=== PATIENT | male | born 1960 | race Caucasian/White ===

== ENCOUNTER 2018-02-04 12:24 | Emergency (ER) | payer OTHER ==
[2018-02-04] MEDS ORDERED: ASPIRIN 81 MG CHEWABLE TAB ONE (12:34)
--- NOTE | 2018-02-04 12:34 | CPEKG ---
Heart Rate: 71 RR Interval: 845 P-R Interval: 148 QRSD Interval: 106 QT Interval: 404 QTC Interval: 439 P Spencer: 44 QRS Spencer: -26 T Wave Spencer: 20 EKG Severity - BORDERLINE ECG - EKG Impression: SINUS RHYTHM EKG Impression: BORDERLINE T WAVE ABNORMALITIES Electronically Signed By: Jack Cantu 09-Feb-2018 08:13:01
[2018-02-04] MEDS ORDERED: ASPIRIN 81 MG CHEWABLE TAB PO ONE (12:36)
[2018-02-04 12:47] LABS: PLATELET COUNT 302 10^3/uL (150-400)
--- NOTE | 2018-02-04 12:47 | EDPHY ---
H & P Time Seen by Provider: 02/04/18 12:32 - Medical/Surgical History Hx Asthma: No Hx Chronic Respiratory Disease: No Hx Diabetes: No Hx Cardiac Disease: No Hx Renal Disease: No Hx Cirrhosis: No Hx Alcoholism: No Hx HIV/AIDS: No Hx Splenectomy or Spleen Trauma: No Other PMH: high cholesterol, enlarged prostate - Social History Smoking Status: Never smoked Constitutional: Initial Vital Signs Temperature (C) 36.8 C 02/04/18 12:39 Heart Rate 68 02/04/18 12:39 Respiratory Rate 20 02/04/18 12:39 Blood Pressure 155/93 H 02/04/18 12:39 O2 Sat (%) 94 02/04/18 12:39 O2 Delivery Mode Room Air Allergies/Adverse Reactions: No Known Allergies Allergy (Verified 02/04/18 12:38) Home Medications: Medication Instructions Recorded Simvastatin [Zocor 5 mg] 5 mg PO DAILY18 01/24/12 Flomax 0.4 MG (RX) 04/21/15 Claritin 02/04/18 Pepcid 02/04/18 Medical Decision Making ED Course/Re-evaluation: CHIEF COMPLAINT: Intermittent palpitations and shortness of breath and near passing out HISTORY OF PRESENT ILLNESS: Healthy 57-year-old who over the last 3-4 days has had multiple episodes of irregular and rapid heart rate. When his heart rate becomes irregular and rapid he feels short of breath and lightheaded and dizzy and almost as if he is going to pass out. All of the episodes have and it spontaneously after a fairly brief period of time. He had a couple of episodes a few days ago and the day before yesterday and then multiple episodes yesterday and 1 this morning. It does not seem to be waking him from sleep. He has no prior history of this. He denies any medication use or illness. REVIEW OF SYSTEMS: A 10 point review of systems was performed and is negative with the exception of the elements mentioned in the history of present illness. PHYSICAL EXAM: HR, BP, O2 Sat, RR. Temp noted General Appearance: Alert, well hydrated, appropriate, and non-toxic appearing. Head: Atraumatic without scalp tenderness or obvious injury Eyes: Pupils equal, round, reactive to light and accommodation, EOMI, no trauma , no injection. Ears: Clear bilaterally, no perforation, normal landmarks Nose: Atraumatic, no rhinorrhea, clear. Throat: There is no erythema or exudates, no lesions, normal tonsils, mucus membranes moist. Neck: Supple, 2+ carotid upstroke, nontender, no lymphadenopathy. Respiratory: No retractions, no distress, no wheezes, and no accessory muscle use. Lungs are clear to auscultation bilaterally. Cardiovascular: Regular rate and rhythm, no murmurs, rubs, or gallops. Bilateral carotid, radial, dorsalis pedis, and posterior tibial pulses intact. Good capillary refill all extremities. Gastrointestinal: Abdomen is soft, nontender, non-distended, no masses, no rebound, no guarding, no peritoneal signs. Musculoskeletal: Normal active ROM of all extremities, atraumatic. Neurological: Alert, appropriate, and interactive. The patient has normal DTRs and non-focal cranial nerves, motor, sensory, and cerebellar exam. Skin: No rashes, good turgor, no nodules on palpation. Past medical history: Benign prostatic hypertrophy, hypercholesterolemia Past surgical history: Noncontributory Family history: Father and uncle with mitral valve problems later in life both requiring repair Social history: , employed, does not abuse tobacco drugs or alcohol DIAGNOSTICS/PROCEDURES/CRITICAL CARE TIME: The 12 lead EKG was interpreted by myself. See hard copy and/or "tracemaster" electronic copy for interpretation. Sinus mechanism no ischemia and normal intervals DIFFERENTIAL DIAGNOSIS: The differential diagnosis for the patient's palpitations included but was not limited to various causes of sinus tachycardia such as dehydration and medicines, SVT, atrial flutter, atrial fibrillation, pulmonary causes. MEDICAL DECISION MAKING: This patient seems like he is having paroxysmal episodes of a rapid rhythm. He feels his heart rate increase in become significantly irregular. A soon as that occurs he become shortness of breath and near syncopal. Symptoms resolved spontaneously and a few minutes but yesterday the happened multiple times. He had another episode this morning and decided to come here. He is asymptomatic now. He denies any recent illnesses, he denies any history of this sort of palpitation prior to 3 or 4 days ago. Denies any family history of rhythm disturbance. Denies any use of prescribed, [id number] medicines. EKG is unremarkable for any rhythm disturbance. Although this patient's laboratory studies are unremarkable. I just spoke with Dr. Reece Negro from Cardiology. This patient will walk up stairs now and he will have a Holter monitor placed. He will then follow up with Dr. Negro after the monitors interrogated for additional workup or studies. He has been told to return here if symptoms worsen. - Data Points Laboratory Results: Laboratory Results 02/04/18 12:38 02/04/18 12:38 02/04/18 02/04/18 12:38 12:38 WBC 7.53 10^3/uL 10^3/uL (3.80-9.50) RBC 5.33 10^6/uL 10^6/uL (4.40-6.38) Hgb 16.6 g/dL g/dL (13.7-17.5) Hct 47.4 % % (40.0-51.0) MCV 88.9 fL fL (81.5-99.8) MCH 31.1 pg pg (27.9-34.1) MCHC 35.0 g/dL g/dL (32.4-36.7) RDW 12.4 % % (11.5-15.2) Plt Count 302 10^3/uL 10^3/uL (150-400) MPV 9.3 fL fL (8.7-11.7) Neut % (Auto) 66.3 % % (39.3-74.2) Lymph % (Auto) 22.8 % % (15.0-45.0) [place] % (Auto) 7.6 % % (4.5-13.0) Eos % (Auto) 2.3 % % (0.6-7.6) Baso % (Auto) 0.9 % % (0.3-1.7) Nucleat RBC Rel Count 0.0 % % (0.0-0.2) Absolute Neuts (auto) 4.99 10^3/uL 10^3/uL (1.70-6.50) Absolute Lymphs (auto) 1.72 10^3/uL 10^3/uL (1.00-3.00) Absolute Monos (auto) 0.57 10^3/uL 10^3/uL (0.30-0.80) Absolute Eos (auto) 0.17 10^3/uL 10^3/uL (0.03-0.40) Absolute Basos (auto) 0.07 10^3/uL 10^3/uL (0.02-0.10) Absolute Nucleated RBC 0.00 10^3/uL 10^3/uL (0-0.01) Immature Gran % 0.1 % % (0.0-1.1) Immature Gran # 0.01 10^3/uL 10^3/uL (0.00-0.10) Sodium 139 mEq/L mEq/L (135-145) Potassium 4.0 mEq/L mEq/L (3.5-5.2) Chloride 104 mEq/L mEq/L (97-110) Carbon Dioxide 23 mEq/l mEq/l (22-31) Anion Gap 12 mEq/L mEq/L (8-16) BUN 15 mg/dL mg/dL (7-23) Creatinine 1.0 mg/dL mg/dL (0.7-1.3) Estimated GFR > 60 Glucose 104 mg/dL H mg/dL (70-100) Calcium 9.9 mg/dL mg/dL (8.5-10.4) Magnesium 2.3 mg/dL mg/dL (1.6-2.3) Troponin I < 0.012 ng/mL ng/mL (0.000-0.034) NT-Pro-B Natriuret Pep 24 pg/mL pg/mL (0-125) Medications Given: Discontinued Medications Aspirin (Aspirin) 324 mg PO EDNOW ONE Stop: 02/04/18 12:37 Last Admin: 02/04/18 12:36 Dose: 324 mg Departure - Departure Disposition: Home, Routine, Self-Care Clinical Impression: Palpitations Condition: Good Instructions: Heart Palpitations (ED) Referrals: Joby Bailon MD [Primary Care Provider] - As per Instructions
[2018-02-04 14:43] VITALS: BP 134/93
== END 2018-02-04 13:51 | disposition home or self-care (01) ==
LOC: CED 12:24
DX: R00.2 Palpitations (principal)
CPT/HCPCS: 80048-PO; 83735-PO; 83880-PO; 84484-PO